=== PATIENT | male | born 1990 | race American Indian/Alaskan Native ===

== ENCOUNTER 2018-12-10 23:21 | Emergency (ER) | payer SELFPAY ==
[2018-12-11] MEDS ORDERED: TORADOL IM ONE (01:25)
--- NOTE | 2018-12-11 01:30 | Emergency Department Report ---
ED Lower Extremity HPI - General Chief Complaint: Extremity Injury, Lower Stated Complaint: BILATERAL ANKLE PAIN Source: patient Mode of arrival: Wheelchair Limitations: No Limitations - History of Present Illness Initial Comments: This is a 28 year-old female who presents to emergency room with swelling to left ankle and foot since this morning. Patient reports pain is worse with weightbearing and has progressed throughout the day. He reports pain is sharp in intensity. Pain is relieved when M00 and elevated. He denies recent injury, numbness or tingling, weakness, warmth to the area, or bruising. MD Complaint: ankle injury (left), foot injury (left) -: This morning Injury: Ankle: Left, Foot: Left Type of Injury: unknown Place: home Severity: severe Severity scale (0 -10): 10 Improves With: immobilization Worsens With: weight bearing, movement Context: walking Associated Symptoms: able to partially bear weight, ambulatory. denies: snap/pop sensation, swelling, numbness, tingling - Related Data Previous Rx's Medication Instructions Recorded Last Taken Type Indomethacin 50 mg PO Q8H PRN #20 capsule 12/11/18 Unknown Rx hydroCHLOROthiazide [HCTZ] 12.5 mg PO QDAY #30 capsule 12/11/18 Unknown Rx methylPREDNISolone [Medrol 4MG 4 mg PO DAILY #1 tab.ds.pk 12/11/18 Unknown Rx DOSEPAK (21 tabs)] Allergies Allergy/AdvReac Type Severity Reaction Status Date / Time No Known Allergies Allergy Verified 12/10/18 23:31 ED Review of Systems ROS: Stated complaint: BILATERAL ANKLE PAIN Other details as noted in HPI Constitutional: denies: chills, fever Respiratory: denies: cough, shortness of breath, wheezing Cardiovascular: denies: chest pain, palpitations Gastrointestinal: denies: abdominal pain, nausea, diarrhea Musculoskeletal: arthralgia (left foot and ankle). denies: back pain, joint swelling Skin: denies: rash, lesions Neurological: denies: headache, weakness, paresthesias Psychiatric: denies: anxiety, depression ED Past Medical Hx - Past Medical History Previous Medical History?: No - Surgical History Past Surgical History?: Yes Additional Surgical History: tonsil. ingrown toenail - Social History Smoking Status: Never Smoker Substance Use Type: Marijuana - Medications Home Medications: Home Medications Medication Instructions Recorded Confirmed Last Taken Type Indomethacin 50 mg PO Q8H PRN #20 capsule 12/11/18 Unknown Rx hydroCHLOROthiazide [HCTZ] 12.5 mg PO QDAY #30 capsule 12/11/18 Unknown Rx methylPREDNISolone [Medrol 4MG 4 mg PO DAILY #1 tab.ds.pk 12/11/18 Unknown Rx DOSEPAK (21 tabs)] ED Physical Exam - General Limitations: No Limitations General appearance: alert, in no apparent distress, obese (morbidly) - Respiratory Respiratory exam: Present: normal lung sounds bilaterally. Absent: respiratory distress - Cardiovascular Cardiovascular Exam: Present: regular rate, normal rhythm. Absent: systolic murmur, diastolic murmur, rubs, gallop - Extremities Exam Extremities exam: Present: full ROM, normal capillary refill. Absent: pedal edema, joint swelling, calf tenderness - Expanded Lower Extremity Exam Left Knee exam: Present: normal inspection, full ROM Lower Leg exam: Present: normal inspection, full ROM Ankle exam: Present: tenderness. Absent: full ROM (Limited range of motion secondary pain), swelling, abrasion, laceration, ecchymosis, deformity, crepidus, dislocation, erythema, anterior draw sign Foot/Toe exam: Present: tenderness. Absent: full ROM (Limited range of motion secondary pain), swelling, abrasion, laceration, ecchymosis, deformity, crepidus, dislocation, erythema, amputation, puncture wound, foreign body, calcaneal tenderness, tenderness at base of 5th metatarsal, nail avulsion, subungual hematoma Neuro vascular tendon exam: Present: no vascular compromise Gait: Positive: observed and limited by pain - Neurological Exam Neurological exam: Present: alert, oriented X3 - Psychiatric Psychiatric exam: Present: normal affect, normal mood - Skin Skin exam: Present: warm, dry, intact, normal color. Absent: rash ED Course Vital Signs 12/10/18 12/11/18 12/11/18 23:25 04:27 05:00 Temperature 98.1 F 98.7 F Pulse Rate 80 73 73 Respiratory 18 18 Rate Blood Pressure 176/111 163/113 163/113 O2 Sat by Pulse 99 98 Oximetry 12/11/18 05:52 Temperature 98.8 F Pulse Rate 82 Respiratory 20 Rate Blood Pressure 148/109 O2 Sat by Pulse 97 Oximetry ED Lower Extremity MDM - Radiology Data Radiology results: report reviewed PROCEDURE: XR ANKLE 3+V LT, XR FOOT 3+V LT TECHNIQUE: 3 views of the left foot and ankle HISTORY: swelling and pain COMPARISONS: None FINDINGS: Left ankle periarticular soft tissue swelling. Soft tissue swelling in the left foot is predominantly in the dorsal forefoot. No displaced fracture. Intact ankle mortise. Mild midfoot osteoarthrosis and hallux valgus are present. Mild first metatarsal phalangeal osteoarthrosis. IMPRESSION: Left ankle and forefoot soft tissue swelling without fracture. Hallux valgus and mild osteoarthrosis in the midfoot and first metatarsophalangeal joint. - Medical Decision Making Patient was examined by me. Patient is in no acute distress. Obtained x-rays of left ankle and foot. X-rays dictated by radiologist and report reviewed by myself. Left ankle and forefoot soft tissue swelling without fracture. Hallux valgus and mild osteoarthrosis in the midfoot and first metatarsophalangeal joint. Start medrol dose pack and indomethacin. Patient informed of results. Blood pressure elevated without diagnosis of hypertension. Patient given clonidine while in the ER. On reevaluation blood pressure trended down. She will be treated for hypertension with hydrochlorothiazide. Informed of the importance of follow-up with a primary care provider within the next week in regards to blood pressure. Plan discussed with patient to discharge home and treat outpatient. He agrees with ER plan. Referral to a PCP for continued care. Patient discharged home in stable condition. Follow up with PCP in 2-3 days. Critical care attestation.: If time is entered above; I have spent that time in minutes in the direct care of this critically ill patient, excluding procedure time. ED Disposition Clinical Impression: Acute left ankle pain, Acute pain of left foot, Asymptomatic hypertension Osteoarthritis Qualifiers: Osteoarthritis location: multiple joints Osteoarthritis type: primary Qualified Code(s): M15.0 - Primary generalized (osteo)arthritis Obesity Qualifiers: Obesity type: due to excess calories Obesity classification: adult class 3 (BMI >= 40) Serious obesity comorbidity presence: without serious comorbidity Body mass index: BMI 40.0-44.9 Qualified Code(s): E66.01 - Morbid (severe) obesity due to excess calories Disposition: TO HOME OR SELFCARE Is pt being admited?: No Does the pt Need Aspirin: No Condition: Stable Instructions: Osteoarthritis (ED), Self-Care Measures with a Chronic Disease (ED), Hypertension (ED), Arthralgia (ED) Additional Instructions: Use ice or heat on affected area for 20 minutes and off for 2 hours. Take pain medication as needed for pain. Follow up with Primary Care Provider in 2-3 days. Prescriptions: hydroCHLOROthiazide [HCTZ] 12.5 mg PO QDAY #30 capsule Indomethacin 50 mg PO Q8H PRN #20 capsule PRN Reason: Pain , Severe (7-10) methylPREDNISolone [Medrol 4MG DOSEPAK (21 tabs)] 4 mg PO DAILY #1 tab.ds.pk Referrals: [facility] [Outside] - 3-5 Days [facility] [Outside] - 3-5 Days [facility] [Outside] - 3-5 Days Forms: Work/School Release Form(ED)
[2018-12-11] MEDS ORDERED: IBUPROFEN PO ONE (01:52)
--- NOTE | 2018-12-11 04:06 | XRay Report ---
PROCEDURE: XR ANKLE 3+V LT, XR FOOT 3+V LT TECHNIQUE: 3 views of the left foot and ankle HISTORY: swelling and pain COMPARISONS: None FINDINGS: Left ankle periarticular soft tissue swelling. Soft tissue swelling in the left foot is predominantly in the dorsal forefoot. No displaced fracture. Intact ankle mortise. Mild midfoot osteoarthrosis and hallux valgus are present. Mild first metatarsal phalangeal osteoarthrosis. IMPRESSION: Left ankle and forefoot soft tissue swelling without fracture. Hallux valgus and mild osteoarthrosis in the midfoot and first metatarsophalangeal joint. This document is electronically signed by Simon Zhu MD., December 11 2018 04:04:30 AM ET
[2018-12-11] MEDS ORDERED: CATAPRES PO ONE (04:31)
[2018-12-11 05:54] VITALS: BP 148/109
== END 2018-12-11 05:55 | disposition home or self-care (01) ==
LOC: ED 23:21
DX: M19.072 Primary osteoarthritis, left ankle and foot (principal); I10 Essential (primary) hypertension; E66.9 Obesity, unspecified; F12.10 Cannabis abuse, uncomplicated; Z90.89 Acquired absence of other organs
CPT/HCPCS: 73610; 73630; J1885